=== PATIENT | female | born 1965 | race Caucasian/White ===

== ENCOUNTER → 2016-07-18 | Outpatient (CLI) | payer OTHER ==
--- NOTE | 2016-07-18 12:25 | RAD ---
DATE: 07/18/2016 EXAM: DIGITAL SCREEN BILAT W/CAD Tomosynthesis was also employed HISTORY: Screening COMPARISON: One year earlier This study was interpreted with the benefit of Computerized Aided Detection (CAD). FINDINGS: The breast parenchyma shows scattered fibroglandular densities. Breast parenchyma level B. There is a density centrally in the left breast on the CC view virtually identical to an examination 2 years ago. There has not been a significant change in the appearance of the breasts compared to the previous exam IMPRESSION: Benign findings BI-RADS CATEGORY: 2 BENIGN FINDING(S) RECOMMENDED FOLLOW-UP: 12M 12 MONTH FOLLOW-UP PQRS compliance statement: Patient information was entered into a reminder system with a target due date 07/18/2017 for the next mammogram. Mammography is a sensitive method for finding small breast cancers, but it does not detect them all and is not a substitute for careful clinical examination. A negative mammogram does not negate a clinically suspicious finding and should not result in delay in biopsying a clinically suspicious abnormality. "Our facility is accredited by the [employer] Mammography Program."
== END | disposition home or self-care (01) ==
LOC: MAMMO 11:36
PROVIDERS: ATTEND Obstetrics & Gynecology
DX: Z12.31 Encounter for screening mammogram for malignant neoplasm of breast (principal)
CPT/HCPCS: G0202; 77067

== ENCOUNTER → 2017-07-19 | Outpatient (CLI) | payer OTHER ==
--- NOTE | 2017-07-19 09:56 | RAD ---
DATE: 07/19/2017 EXAM: MAMMO CORNELIO SCREENING BILATERAL HISTORY: Routine screening COMPARISON: 07/18/2016 This study was interpreted with the benefit of Computerized Aided Detection (CAD). The breast parenchyma shows scattered fibroglandular densities. Breast parenchyma level B. FINDINGS: 2-D and 3-D tomosynthesis imaging was performed in CC and MLO projections. There is an unchanged small smooth nodule anteromedially in the right breast. There is a 7 mm smooth nodule located just medial to the midline of the left breast as best seen on CC tomosynthesis images #22. It has increased slightly in size since the previous study. No other new or enlarging breast densities seen. An old breast biopsy marker is again noted centrally in the left breast. Minimal benign type calcification is present. No suspicious microcalcifications have developed. IMPRESSION: A tiny smooth left breast nodule has increased slightly in size. Sonographic evaluation is suggested. BI-RADS CATEGORY: 0 INCOMPLETE: NEEDS ADDITIONAL IMAGING EVALUATION AND/OR PRIOR MAMMOGRAMS FOR COMPARISON. RECOMMENDED FOLLOW-UP: ADD ADDITIONAL IMAGING PQRS compliance statement: Patient information was entered into a reminder system with a target due date for the next mammogram. Mammography is a sensitive method for finding small breast cancers, but it does not detect them all and is not a substitute for careful clinical examination. A negative mammogram does not negate a clinically suspicious finding and should not result in delay in biopsying a clinically suspicious abnormality. "Our facility is accredited by the [employer] Mammography Program."
== END | disposition home or self-care (01) ==
LOC: MAMMO 08:47
PROVIDERS: ATTEND Obstetrics & Gynecology
DX: Z12.31 Encounter for screening mammogram for malignant neoplasm of breast (principal); N63.20 Unspecified lump in the left breast, unspecified quadrant
CPT/HCPCS: 77063; 77067

== ENCOUNTER → 2017-07-24 | Outpatient (CLI) | payer OTHER ==
--- NOTE | 2017-07-24 13:37 | RAD ---
Indication: Abnormality seen on the most recent screening mammogram. Technique: Limited left breast ultrasound with grayscale and color Doppler images. Comparison: Screening mammogram from 07/19/2017 and from 07/18/2016. Findings: There is a 0.7 x 0.3 x 0.5 cm oval-shaped hypoechoic mass with indistinct margins at 11:00 position approximately 4.5 cm from the nipple that corresponds to the previously seen abnormality on the screening mammogram. This mass is wider than taller and demonstrates no internal vascularity or posterior shadowing. Central echogenic stalk is seen on some images. No other solid or cystic lesions seen. Impression: Left breast abnormality that corresponds to the mammographic abnormality as described above with intermediately benign sonographic features. Findings may suggest complicated cyst, a lymph node or a fibroadenoma. Follow-up ultrasound in 3-4 months recommended. BI-RADS 3: Probably benign.
== END | disposition home or self-care (01) ==
LOC: US 12:49
PROVIDERS: ATTEND Obstetrics & Gynecology
DX: R92.8 Other abnormal and inconclusive findings on diagnostic imaging of breast (principal)
CPT/HCPCS: 76641

== ENCOUNTER → 2017-10-14 | Outpatient (CLI) | payer OTHER ==
--- NOTE | 2017-10-14 14:13 | RAD ---
Left breast ultrasound, 10/14/2017: History: Follow-up breast nodule On the previous study 07/24/2017 a tiny elongated nodule measuring 3 mm in width was identified at the 11:00 location. Today's follow-up targeted ultrasound exam of that region does not show a significant abnormality. This may be due to technical factors or this may have represented a small complicated cyst which has resolved. IMPRESSION: The tiny left breast lesion seen on the 07/24/2017 ultrasound exam cannot be redemonstrated at this time. Follow-up 3-D left mammography at the 6 month anniversary of the patient's 07/19/2017 study is suggested for further evaluation. BI-RADS 3-probably benign findings
== END | disposition home or self-care (01) ==
LOC: US 12:54
PROVIDERS: ATTEND Obstetrics & Gynecology
DX: R92.8 Other abnormal and inconclusive findings on diagnostic imaging of breast (principal)
CPT/HCPCS: 76641

== ENCOUNTER → 2018-09-25 | Outpatient (CLI) | payer OTHER ==
--- NOTE | 2018-09-26 09:07 | RAD ---
DATE: 09/25/2018 EXAM: MAMMO CORNELIO SCREENING BILATERAL HISTORY: Routine screening COMPARISON: 07/19/2017 This study was interpreted with the benefit of Computerized Aided Detection (CAD). Breast Density: SCATTERED The breast parenchyma shows scattered fibroglandular densities. Breast parenchyma level B. FINDINGS: The small smooth nodule seen medially in the left breast on the 07/19/2017 study has regressed. No new or enlarging breast densities are seen. No spiculated mass or architectural distortion is evident. Minimal benign type calcifications are present. No suspicious microcalcifications have developed. IMPRESSION: There is no mammographic evidence of malignancy in either breast. BI-RADS CATEGORY: 2 BENIGN FINDING(S) RECOMMENDED FOLLOW-UP: 12M 12 MONTH FOLLOW-UP PQRS compliance statement: Patient information was entered into a reminder system with a target due date for the next mammogram. Mammography is a sensitive method for finding small breast cancers, but it does not detect them all and is not a substitute for careful clinical examination. A negative mammogram does not negate a clinically suspicious finding and should not result in delay in biopsying a clinically suspicious abnormality. "Our facility is accredited by the [employer] Mammography Program."
== END | disposition home or self-care (01) ==
LOC: MAMMO 11:19
PROVIDERS: ATTEND Obstetrics & Gynecology
DX: Z12.31 Encounter for screening mammogram for malignant neoplasm of breast (principal); N64.89 Other specified disorders of breast
CPT/HCPCS: 77063; 77067

== ENCOUNTER 2019-05-09 17:25 | Emergency (ER) | payer OTHER ==
--- NOTE | 2019-05-09 17:57 | PHYS DOC ---
Adult General Chief Complaint Chief Complaint: RECTAL BLEED.." I am so terribly constipated... now I have some bright red blood down there and it hurt to even try to poop.... " HPI HPI Patient is a 54 year old female who presents with above hx and complaints of severe constipation, fecal impaction and some bright red blood with last attempt stooling. Patient has had. Problems constipation in past. Patient has had previous weight loss surgery. Pt. states one of the bulk agents she takes causes constipation if she does not get in enough fluids. Patient denies any travel. Patient denies any specific ill contacts. Patient states she has not had a stool for 4 days other than very hard small pellets. Patient did try an enema at home and did try a glycerin suppository with no results. Patient however has taken some pain meds at home which may have increased her constipation. Pt. follows with Dr. Zay Tran in [place]. Review of Systems Review of Systems Constitutional: Denies fever or chills [] Eyes: Denies change in visual acuity, redness, or eye pain [] HENT: Denies nasal congestion or sore throat [] Respiratory: Denies cough or shortness of breath [] Cardiovascular: No additional information not addressed in HPI [] GI: Denies abdominal pain, nausea, vomiting, bloody stools or diarrhea [. The]patient complaining of constipation and stool impaction. Complaining of rectal pain and some bright red bleeding. : Denies dysuria or hematuria [] Musculoskeletal: Denies back pain or joint pain [] Integument: Denies rash or skin lesions [] Neurologic: Denies headache, focal weakness or sensory changes [] Endocrine: Denies polyuria or polydipsia [] All other systems were reviewed and found to be within normal limits, except as documented in this note. Family History Family History Noncontributory Current Medications Current Medications See nursing for home meds Allergies Allergies No known drug allergies Physical Exam Physical Exam Constitutional: Moderate acute distress, non-toxic appearance. [] HENT: Normocephalic, atraumatic, bilateral external ears normal, oropharynx moist, no oral exudates, nose normal. [] Eyes: PERRLA, EOMI, conjunctiva normal, no discharge. [] Neck: Normal range of motion, no tenderness, supple, no stridor. [] Cardiovascular:Heart rate regular rhythm, no murmur [] Lungs & Thorax: Bilateral breath sounds clear to auscultation [] Abdomen: Bowel sounds normal, soft, no tenderness, no masses, no pulsatile masses. [] Old surgery scars. Rectal exam has a significant mall rectal fissure and hemorrhoid. Rectal fissure is spotting blood. Patient had a tennis ball size hard rectal impaction. Impaction broken up with my finger. Glycerin suppos itory place. Repeat rectal exam and removed some chunks of very hard stool.. Patient currently having watery brown stool. No active bleeding. Skin: Warm, dry, no erythema, no rash. [] Back: No tenderness, no CVA tenderness. [] Extremities: No tenderness, no cyanosis, no clubbing, ROM intact, no edema. [] No rebound. Neurologic: Alert and oriented X 3, normal motor function, normal sensory function, no focal deficits noted. [] Psychologic: Affect anxious, judgement normal, mood normal. [] EKG EKG [] Radiology/Procedures Radiology/Procedures [] Course & Med Decision Making Course & Med Decision Making Pertinent Labs and Imaging studies reviewed. (See chart for details) Patient is to remain on a clear fluid diet only for the next 2 days. No solid no milk products. Must allow bowel rest. Push fluids. Use Anusol suppositories for the hemorrhoid. May use dubicaine ointment for the pain in the rectal area. Patient use sitz baths. Patient to use glycerin suppositories. Patient to expect some cramping with passage of watery stool by morning from the mag citrate. If still having problems with impaction and constipation may require admission with continued enemas. Must remain on a clear fluid diet only for the next 48 hours. Follow-up primary care. Recommend patient not take any narcotics. May take Tylenol for pain or ibuprofen. []Impression: 1. Constipation / Impaction 2. Hemorrhoid 3. Rectal Fissure Dragon Disclaimer Dragon Disclaimer This electronic medical record was generated, in whole or in part, using a voice recognition dictation system. Departure Departure: Disposition: 01 HOME/RESIDENCE PRIOR TO ADM Condition: STABLE Referrals: ZAY TRAN (PCP) Scripts Glycerin (LAXATIVE SUPPOSITORY) 1 Each Supp.rect 1 EACH RC QIDPRN PRN for CONFUSION, #30 SUPP.RECT Prov: JAVED MARCIAL MD 05/09/19 Dibucaine (DIBUCAINE) 28 Gm Oint...g. 1 CHERELLE RC QID for hemorrhoid and rectal pain for 30 Days, #30 GM 0 Refills Prov: JAVED MARCIAL MD 05/09/19 Hydrocortisone Acetate (ANUSOL-HC) 25 Mg Supp.rect 25 MG RC TID for hemorrhoids, #30 SUPP.RECT Prov: JAVED MARCIAL MD 05/09/19 Dragon Disclaimer This chart was dictated in whole or in part using Voice Recognition software in a busy, high-work load, and often noisy Emergency Department environment. It may contain unintended and wholly unrecognized errors or omissions. JAVED MARCIAL MD May 09, 2019 17:57
[2019-05-09] MEDS ORDERED: MAGNESIUM CITRATE 296 ML SOLUTION. ONE (18:15)
[2019-05-09] MEDS ORDERED: GLYCERIN ADULT 1 SUPP.RECT. ONE (18:16)
[2019-05-09 18:24] VITALS: BP 105/65
[2019-05-09] MEDS ORDERED: DIBU28OI RC (18:32)
[2019-05-09] MEDS ORDERED: HYDR25SU18 RC (18:32)
[2019-05-09] MEDS ORDERED: GLYC1SUP31 RC (18:32)
[2019-05-09] MEDS ORDERED: MAGNESIUM CITRATE 296 ML SOLUTION. PO ONE (18:45)
[2019-05-09] MEDS ORDERED: GLYCERIN ADULT 1 SUPP.RECT. PR ONE (18:45)
== END 2019-05-09 19:15 | disposition home or self-care (01) ==
LOC: ER 17:25
DX: K64.9 Unspecified hemorrhoids (principal); K60.2 Anal fissure, unspecified; K59.00 Constipation, unspecified
CPT/HCPCS: 99283

== ENCOUNTER → 2019-09-28 | Outpatient (CLI) | payer OTHER ==
[~2019-09-28] MED LIST: DIBU28OI RC; GLYC1SUP31 RC; HYDR25SU18 RC
--- NOTE | 2019-09-29 12:26 | RAD ---
DATE: 09/28/2019 12:30 PM EXAM: MAMMO CORNELIO SCREENING BILATERAL HISTORY: Screening COMPARISON: 07/19/2017, 09/25/2018 Bilateral CC and MLO views of the breasts were performed. Bilateral breast tomosynthesis was performed in CC and MLO projections. This study was interpreted with the benefit of Computerized Aided Detection (CAD). FINDINGS: Breast Density: SCATTERED The breast parenchyma shows scattered fibroglandular densities. Breast parenchyma level B No suspicious masses, microcalcifications or architectural distortion is present to suggest malignancy in either breast. The visualized axillae are unremarkable. IMPRESSION: No mammographic evidence of malignancy. BI-RADS CATEGORY: 1 NEGATIVE RECOMMENDED FOLLOW-UP: 12M 12 MONTH FOLLOW-UP Annual screening mammography is recommended, unless clinically indicated sooner based on symptoms or change in physical exam. PQRS compliance statement: Patient information was entered into a reminder system with a target due date 09/28/2020 for the next mammogram. Mammography is a sensitive method for finding small breast cancers, but it does not detect them all and is not a substitute for careful clinical examination. A negative mammogram does not negate a clinically suspicious finding and should not result in delay in biopsying a clinically suspicious abnormality. "Our facility is accredited by the [employer] Mammography Program."
== END ==
LOC: MAMMO 12:29
PROVIDERS: ATTEND Obstetrics & Gynecology
DX: Z12.31 Encounter for screening mammogram for malignant neoplasm of breast (principal)
CPT/HCPCS: 77063; 77067

== ENCOUNTER → 2020-10-03 | Outpatient (CLI) | payer OTHER ==
--- NOTE | 2020-10-03 15:39 | RAD ---
EXAM: BILATERAL DIGITAL 3D SCREENING MAMMOGRAPHY. HISTORY: Routine mammographic screening. TECHNIQUE: Bilateral digital 3D and tomographic images were obtained in CC and MLO projections. Compu ter-aided detection was applied. COMPARISON: 09/28/2019. COMPOSITION: B. There are scattered areas of fibroglandular density. FINDINGS: There is a new obscured density laterally and superiorly on the left, seen only on tomosynt hesis. See annotations. A postbiopsy clips is noted inferolaterally on the left. Scattered calcifications are benign. A small nodule medially on the right is stable and benign. BI-RADS CATEGORY 0: Incomplete--Needs Additional Imaging Evaluation. RECOMMENDATION: 1. Spot compression and sonography of a new density seen on tomosynthesis superolaterally on the left . See annotations. Electronically signed by: Kris Levy MD (10/03/2020 3:37 PM) [id number]
== END ==
LOC: MAMMO 11:03
PROVIDERS: ATTEND Obstetrics & Gynecology
DX: Z12.31 Encounter for screening mammogram for malignant neoplasm of breast (principal)
CPT/HCPCS: 77063; 77067

== ENCOUNTER → 2020-10-12 | Outpatient (CLI) | payer OTHER ==
--- NOTE | 2020-10-12 15:28 | RAD ---
PROCEDURE: US BREAST LT, MG DIAGNOSTICUNILAT MAMMO HISTORY: The patient is 55 years old and is seen for Reason: LT BREAST CALLBACK / Spl. Instructions: / History: . COMPARISON: October 03, 2020 and September 28, 2019 TECHNIQUE: Left breast ML and spot compression views were obtained. Images were processed by the [facility] [employer] [facility] computer-aided detection system. Targeted left breast ultrasound DENSITY: There are scattered fibroglandular densities. FINDINGS: Left mammogram: Focal asymmetry within the left upper outer breast persists on the spot compression v iews. Biopsy marker within the inferior breast. Left ultrasound: Heterogeneous solid hyperechoic and hypoechoic mass within the left breast 2:00 posi tion 6 cm from the nipple measures 0.8 x 0.6 cm. Minimal posterior shadowing. IMPRESSION: 1. Heterogeneous left breast mass. Recommend ultrasound-guided biopsy. Results were discussed with the patient and the patient agreed to continue with the ultrasound-guided biopsy. The patient stated no history of trauma to the left breast. Previous biopsy was benign scar tissue. BI-RADS category 4 Findings suspicious for malignancy Our clinic nurse has been instructed to assist with communicating findings and recommendations to the patient's referring physician and in scheduling follow-up. Patient entered into a reminder system for annual screening mammogram. Electronically signed by: Héctor Reese DO (10/12/2020 3:25 PM) [email or web address]
== END ==
LOC: MAMMO 14:01
PROVIDERS: ATTEND Obstetrics & Gynecology
DX: N63.20 Unspecified lump in the left breast, unspecified quadrant (principal)
CPT/HCPCS: 76641; 77065